=== PATIENT | male | born 1990 | race Two or more races ===

== ENCOUNTER 2025-04-14 06:00 | Day surgery (SDC) | payer MEDICAID, SELFPAY ==
[2025-04-13 07:58] VITALS: BMI 52.6
[2025-04-13 09:10] LABS: Collection Type, Urine Clean Catch
[2025-04-13 09:41] LABS: Basophils % (Auto) 0 % (0-2.5); Eosinophils # (Auto) 0.1 Thou/mm3 (0.0-0.5); Eosinophils % (Auto) 1 % (0-10); Hematocrit 40.3 % (41.0-53.0); Hemoglobin 14.2 g/dL (13.5-16.0); Immature Granulocytes % (Auto) 0 % (0-0); Immature Granulocytes Auto 0.02 Thou/mm3 (0.00-0.00); Lymphocytes # (Auto) 2.1 Thou/mm3 (1.0-4.8); Lymphocytes % (Auto) 25 % (10-50); Mean Corpuscular HGB Conc 35.2 g/dl (31.0-37.0); Mean Corpuscular Hemoglobin 29.7 pg (25.0-35.0); Mean Corpuscular Volume 84 fL (80-100); Monocytes # (Auto) 0.5 Thou/mm3 (0.0-0.8); Monocytes % (Auto) 7 % (0-12); Neutrophils # (Auto) 5.5 Thou/mm3 (1.8-7.7); Neutrophils % (Auto) 67 % (37-80); Nucleated Red Blood Cell % 0 /100 WBC (0); Platelet Count 292 Thou/mm3 (140-440); RDW Standard Deviation 40.6 fL (35.1-43.9); Red Blood Count 4.78 Miln/mm3 (4.50-5.90); White Blood Count 8.2 Thou/mm3 (3.8-10.6)
[2025-04-13 09:49] LABS: Bilirubin,Urine Negative (Negative); Blood,Urine Negative (Negative); Clarity,Urine Clear (Clear/Hazy); Color,Urine Lt-Yellow (Lt Yel-Yel); Glucose, Urine Negative (Negative); Ketones,Urine Negative (Negative); Leukocyte Esterase,Urine Negative (Negative); Nitrite,Urine Negative (Negative); PH,Urine 6.5 (5.0-7.0); Protein,Urine Negative (Neg - Trace); RBC,Urine 1 /hpf (0-3); Specific Gravity,Urine 1.022 (1.001-1.035); Squamous Epithelial Cell,Urine 2 /hpf (0-5); Urobilinogen,Urine Negative mg/dL (0.0-1.0); WBC,Urine < 1 /hpf (0-5)
[2025-04-13 09:58] LABS: Anion Gap 10 (7-16); BUN/Creatinine Ratio 10 Ratio (12-20); Blood Urea Nitrogen 9 mg/dL (9-23); Calcium 9.1 mg/dL (8.3-10.6); Carbon Dioxide 26.8 mMol/L (20.0-31.0); Chloride 100 mMol/L (98-107); Creatinine (Component) 0.9 mg/dL (0.6-1.3); Estimated Creatinine Clearance 150.5 mL/min (>60); Glucose 130 mg/dL (74-106); Osmolality,Calculated 274 (275-295); Potassium 3.8 mMol/L (3.4-5.1); Sodium 137 mMol/L (136-145); eGFR > 60 See Note
--- NOTE | 2025-04-13 14:15 | ESHP_ITS ---
RE: [place] : 1990 DATE OF ADMISSION: 04/13/2025 HISTORY OF PRESENT ILLNESS: The patient is a 34-year-old gentleman desiring bilateral vasectomy. The patient has 3 kids and the is with another baby. PAST SURGICAL HISTORY: The patient had previous surgeries, was wisdom teeth surgery. PAST MEDICAL HISTORY: There is no history of diabetes mellitus. No history of hypertension. HOME MEDICATIONS: The patient takes no medications. ALLERGIES: NONE KNOWN. PHYSICAL EXAMINATION: GENERAL: The patient weighs 290 pounds. The patient is very obese. HEENT: Normal. NECK: Supple. LUNGS: Clear. CARDIOVASCULAR: Heart sounds are normal. ABDOMEN: Soft without any organomegaly. No guarding. No rigidity. EXTREMITIES: Normal. GENITOURINARY: Phallus is normal. Testes are down in the scrotum. IMPRESSION: The patient is desiring bilateral vasectomy for family planning. PLAN: Bilateral vasectomy. Planned procedure, risks, and complications have been discussed with the patient. The patient has understood them and agreed to proceed. DT: 13:29:20 TT: 14:14:00 Ref: [id number] - TID: [id number]
[2025-04-14] VITALS (7 sets, daily range): BP systolic 107–140; BP diastolic 68–90; PULSE 91–111; RESP 14–20; TEMP 37–37.2; O2SAT 95–98; BMI 52.3
--- NOTE | 2025-04-14 09:12 | SUR.PHASEI ---
0912 Patient arrived to recovery drowsy and talking with staff, on oxygen 4L via nasal cannula, breathing unlabored, vital signs stable, denies pain, dressing intact to scrotal area; sutures, telfa, gauze, fluffs, scrotal support, no bleeding noted, denies nausea, report received from Dr. Pathak and Jean CHAVEZ
--- NOTE | 2025-04-14 10:02 | SUR.PHASEII ---
1002 patient awake and alert, breathing unlabored, vital signs stable, denies pain, dressing intact; no bleeding noted, drinking cranberry juice; denies nausea, disconnected from the vital signs machine, dressed in his clothing and awaiting his ride to arrive.
--- NOTE | 2025-04-14 10:03 | ESOP_ITS ---
RE: [place] : 1990 DATE OF OPERATION: 04/14/2025 PREOPERATIVE DIAGNOSIS: The patient desiring bilateral vasectomy for family planning. POSTOPERATIVE DIAGNOSIS: The patient desiring bilateral vasectomy for family planning. PROCEDURE PERFORMED: Bilateral vasectomy. ANESTHESIA: General by Dr. Pathak. INDICATION: The patient is a 34-year-old gentleman desiring bilateral vasectomy for family planning. Planned procedure, risks, and complications have been discussed with the patient. The patient has understood them and agreed to proceed. DESCRIPTION OF PROCEDURE: After the patient was brought to the operating table, under adequate general anesthesia, he was positioned in a supine position. The patient is a very obese gentleman, weighs 306 pounds. Right-sided vasectomy was done first. After the parts were prepped and draped in the usual fashion, right-sided vasectomy was done first. A small transverse incision was then made over the right vas deferens after the vas deferens was made subcutaneous. The incision was about 0.5 cm long. Skin and subcutaneous tissues were incised. Dissection was then carried out. A small segment of the vas deferens was isolated and two clamps were placed on the vas deferens on the right side. The segment in between the clamps was excised and sent for histological examination. The ends of the vas deferens were fulgurated and ligated using 3-0 chromic catgut sutures. Complete hemostasis was obtained. Skin wound was closed with interrupted sutures of 3-0 chromic gut. In a similar fashion, the left-sided vasectomy was done. Local anesthetic was injected at the site of the skin. Sterile dressing was then applied. The patient was then transferred to the recovery room in a satisfactory condition having tolerated the entire procedure well. Sponge count and needle count at the end of the procedure was found to be correct. Estimated blood loss was approximately 1 to 2 mL. DT: 09:26:22 TT: 10:01:00 Ref: [id number] - TID: [id number]
--- NOTE | 2025-04-14 10:25 | SUR.PHASEII ---
1025 Patient meets discharge criteria from recovery, awake and alert, patient mother arrived, discharge instructions given to patient and patients mother, mother signed discharge instructions. Patient given all his belongings prior to discharge, transported via wheelchair and left in a private vehicle.
== END 2025-04-14 10:25 | disposition home or self-care (01) ==
PROVIDERS: PCP Physician Assistant; Referring Provider Surgery; Visit Provider Surgery
PROC: (CPT 55250; principal; 2025-04-14 08:30)
DX: Z30.2 Encounter for sterilization (principal)
CPT/HCPCS: 55250; 36415; 80048; 81001; 85025; A4217; A4649; J0690; J1100; J2250; J2371; J2405; J2704; J2765; J3010; J3490; L8330; A9270; J1596